=== PATIENT | female | born 1970 | race Caucasian/White ===

== ENCOUNTER 2018-12-17 22:24 | Observation (INO) | payer OTHER ==
[~2018-12-17] VITALS: Ht 170.2 cm; Wt 86.2 kg
[2018-12-17] MEDS ORDERED: HYDROCODONE/APAP 7.5MG-325MG 1 EA TAB PO ONE (22:45)
[2018-12-17] MEDS ORDERED: CLONIDINE HCL 0.1 MG TAB PO ONE (22:45)
[2018-12-17] MEDS ORDERED: LABETALOL HCL 5 MG/ML 20ML VIAL IV STA (22:55)
--- NOTE | 2018-12-17 23:39 | Diagnostic Imaging Report ---
EXAMINATION: Head CT without contrast. HISTORY:Headache, dizziness. COMPARISON:None. TECHNIQUE: Multidetector axial images were obtained from the foramen magnum to the vertex without contrast. The images were reconstructed using brain and bone algorithms. Thin section brain images were reformatted into coronal and sagittal planes. Dose modulation, iterative reconstruction, and/or weight based adjustment of the mA/kV was utilized to reduce the radiation dose to as low as reasonably achievable. Intravenous contrast: None IMAGE QUALITY: Suboptimal evaluation particularly at the level of skull base and posterior fossa structures due to streak artifacts. FINDINGS: Skull/scalp: Nonspecific punctate superficial soft tissue focal hyperdensity in right supraorbital region may represent calcification or foreign body. Parenchyma: No abnormal density. No acute hemorrhage, mass or acute major vascular territorial infarct. Arteries: No density suggestive of thrombosis. Dural sinuses: No abnormal density suggestive of thrombosis. Ventricles: No hydrocephalus or displacement. Extra-axial spaces: No abnormal density. Brain volume: Normal for age. Craniocervical junction: No mass, Chiari malformation, or basilar invagination. Sella: No mass. Paranasal/mastoid sinuses: Imaged portions unremarkable. IMPRESSION: No acute intracranial abnormality. Signed by: Dr. Tigist Cheng M.D. on 12/17/2018 11:35 PM
--- NOTE | 2018-12-17 23:40 | Diagnostic Imaging Report ---
EXAMINATION: CHEST SINGLE (PORTABLE) INDICATION: Hypertension. COMPARISON: None FINDINGS: TUBES and LINES: None. LUNGS: Lungs are moderately inflated. There is no evidence of pneumonia or pulmonary edema. PLEURA: No pleural effusion or pneumothorax. HEART AND MEDIASTINUM: The cardiomediastinal silhouette is unremarkable. BONES AND SOFT TISSUES: No acute osseous abnormality. UPPER ABDOMEN: No free air under the diaphragm. IMPRESSION: No acute radiographic abnormality. Signed by: Dr. Edy Schmitz MD on 12/17/2018 11:37 PM
[2018-12-18] VITALS (8 sets, daily range): BP systolic 130–168; BP diastolic 81–97
[2018-12-18 00:06] LABS: BASOPHILS % 0.5 % (0.0-1.0); EOSINOPHILS # (AUTO) 0.2 (0.0-0.4); EOSINOPHILS % 2.5 % (0.0-6.0); HEMATOCRIT 43.6 % (34.2-44.1); HEMOGLOBIN 14.4 g/dL (12.0-16.0); LYMPHOCYTES # (AUTO) 2.5 (1.0-3.2); LYMPHOCYTES % 28.1 % (18.0-39.1); MEAN CORPUSCULAR HEMOGLOBIN 30.8 pg (28-32); MEAN CORPUSCULAR VOLUME 93.2 fL (81-99); MONOCYTES # (AUTO) 0.9 (0.2-0.8); MONOCYTES % 9.9 % (4.4-11.3); NEUTROPHILS # (AUTO) 5.2 (2.1-6.9); NEUTROPHILS % 58.9 % (38.7-80.0); PLATELET COUNT 295 x10e3/uL (140-360); RED BLOOD COUNT 4.68 x10e6/uL (3.6-5.1); RED CELL DISTRIBUTION WIDTH 12.5 % (11.7-14.4)
[2018-12-18 00:14] LABS: PARTIAL THROMBOPLASTIN TIME 26.9 seconds (23.8-35.5)
[2018-12-18 00:17] LABS: INR 0.85; PROTHROMBIN TIME 12.1 seconds (11.9-14.5)
[2018-12-18 00:27] LABS: ALANINE AMINOTRANSFERASE 12 IU/L (0-55); ALBUMIN 3.8 g/dL (3.5-5.0); ALBUMIN/GLOBULIN RATIO 1.2 (0.8-2.0); ALKALINE PHOSPHATASE 37 IU/L (40-150); ANION GAP 16.9 mmol/L (8-16); BLOOD UREA NITROGEN 6 mg/dL (7-26); BUN/CREATININE RATIO 8 (6-25); CALCIUM 8.6 mg/dL (8.4-10.2); CARBON DIOXIDE 22 mmol/L (22-29); CHLORIDE 104 mmol/L (98-107); CREATINE KINASE 38 IU/L (29-168); CREATININE, SERUM 0.74 mg/dL (0.57-1.11); EST GLOMERULAR FILTRATION RATE > 60 ML/MIN (60-); GLUCOSE 94 mg/dL (74-118); SODIUM 140 mmol/L (136-145)
[2018-12-18 00:39] LABS: POTASSIUM 2.9 mmol/L (3.5-5.1)
[2018-12-18] MEDS ORDERED: POTASSIUM CHLORIDE 20 MEQ TAB CR PO STA (00:40)
[2018-12-18] MEDS ORDERED: KCL 20MEQ/.9 SOD CHL 1,000 ML IV ONE (00:45)
[2018-12-18 01:25] LABS: CREATINE KINASE MB < 1.00 ng/mL (0-4.3)
--- OUTSIDE RECORDS SUMMARY | 2018-12-18 01:44 | XMS REPORT ---
Author Author [facility] Address Unknown Phone Unavailable Care Team Providers Care Tender Coordinator Name Role Phone Paulette CANTU Unavailable Unavailable Problems This patient has no known problems. Allergies, Adverse Reactions, Alerts This patient has no known allergies or adverse reactions. Medications This patient has no known medications. Results Test Description Test Time Test Comments Text Results Atomic Results Result Comments CHEST SINGLE (PORTABLE) 2018-12-17 23:36:00 [place] [address] Patient Name: VELMA RODARTE MR #: [id number] : 1970 Age/Sex: 47/F Req #: [id number] Adm Physician: Ordered by: LUIS CANTU MD Report #: [id number] Location: ER Room/Bed: Procedure: [id number] DX/CHEST SINGLE (PORTABLE) Exam Date: 12/17/18 Exam Time: 2300 REPORT STATUS: Signed EXAMINATION: CHEST SINGLE (PORTABLE) INDICATI ON: Hypertension. COMPARISON: None FINDINGS: TUBES and LINES: None. LUNGS: Lungs are moderately inflated. There is no evidence of pneumonia or pulmonary edema. PLEURA: No pleural effusion or pneumothorax. HEART AND MEDIASTINUM: The cardiomediastinal silhouette is unremarkable. BONES AND SOFT TISSUES: No acute osseous abnormality. UPPER ABDOMEN: No free air under the diaphragm. IMPRESSION: No acute radiographic abnormality. Signed by: Dr. Arvin Jackson MD on 12/17/2018 11:37 PM Dictated By: ARVIN JACKSON MD 36 Transcribed By: STONEY on 12/17/182336 COPY TO: LUIS CANTU MD CT BRAIN WO 2018-12-17 23:32:00 [place] [address] Patient Name: VELMA RODARTE MR #: [id number] : 1970 Age/Sex: 47/F Req #: [id number] Adm Physician: Ordered by: LUIS CANTU MD Report #: [id number] Location: ER Room/Bed: Procedure: [id number] CT/CT BRAIN WO Exam Date: 12/17/18 Exam Time: 2300 REPORT STATUS: Signed EXAMINATION: Head CT without contrast. HISTORY:Headache, dizziness. COMPARISON:None. TECHNIQUE: Multidetector axial images were obtained from the foramen magnum to the vertex without contrast. The images were reconstructed using brain and bone algorithms. Thin section brain images were reformatted into coronal and sagittal planes. Dose modulation, iterative reconstruction, and/or weight based adjustment of the mA/kV was utilized to reduce the radiation dose to as low as reasonably achievable. Intravenous contrast: None IMAGE QUALITY: Suboptimal evaluation particularly at the level of skull base and posterior fossa structu res due to streak artifacts. FINDINGS: Skull/scalp: Nonspecific punctate superficial soft tissue focal hyperdensity in right supraorbital region may represent calcification or foreign body. Parenchyma: No abnormal density. No acute hemorrhage, mass or acute major vascular territorial infarct. Arteries: No density suggestive of thrombosis. Dural sinuses: No abnormal density suggestive of thrombosis. Ventricles: No hydrocephalus or displacement. Extra-axial spaces: No abnormal density. Brain volume: Normal for age. Craniocervical junction: No mass, Chiari malformation, or basilar invagination. Sella: No mass. Paranasal/mastoid sinuses: Imaged portions unremarkable. IMPRESSION: No acute intracranial abnormality. Signed by: Dr. Tigist Cheng M.D. on 12/17/2018 11:35 PM Dictated By: TIGIST CHENG MD [id number] Transcribed By: STONEY on 12/17/187 COPY TO: LUIS CANTU MD
[2018-12-18] MEDS ORDERED: NITROGLYCERIN 0.4 MG SUBL SL PRN (01:45)
[2018-12-18] MEDS: FAMOTIDINE 20 MG/2 ML VIAL IV SCH ×3 (01:45→20:01)
[2018-12-18] MEDS ORDERED: ONDANSETRON HCL INJ 2MG/ML 2ML 2 MG/ML VIAL IV PRN (01:45)
[2018-12-18] MEDS ORDERED: MORPHINE SULFATE 2 MG/ML SYR 1ML IV PRN (01:45)
[2018-12-18] MEDS ORDERED: CLONIDINE HCL0.1 MG PO (02:24)
[2018-12-18] MEDS ORDERED: HYDRALAZINE HCL50 MG PO (02:24)
[2018-12-18] MEDS ORDERED: METOPROLOL TARTRATE 25 MG TAB PO ONE (02:30)
[2018-12-18 03:58] LABS: BILIRUBIN,URINE NEGATIVE (NEGATIVE); CLARITY,URINE CLEAR (CLEAR); COLOR,URINE YELLOW (YELLOW); KETONES,URINE 1+ (NEGATIVE); LEUKOCYTE ESTERASE ,URINE NEGATIVE (NEGATIVE); NITRITE,URINE NEGATIVE (NEGATIVE); PROTEIN,URINE DIPSTICK NEGATIVE (NEGATIVE); URINE UROBILINOGEN 0.2 mg/dL (0.2 - 1)
[2018-12-18 04:06] LABS: BACTERIA,URINE FEW /HPF; EPITHELIAL CELLS,URINE MANY /LPF; PREGNANCY TEST, URINE NEGATIVE (NEGATIVE)
--- NOTE | 2018-12-18 04:15 | NUR ---
RECEIVED PT TO UNIT ROOM 106 VIA WHEELCHAIR AT THIS TIME.PT AAO X 3.NO S/S OF DISTRESS NOTED.RESPIRATIONS EVEN/NON LABORED.PT DENIES ANY CHEST PAIN AT THIS TIME.PT'S IV TO RIGHT AC NOTED LEAKING.INSTRUCTED PT TO CALL FOR ASSISTANCE NEEDED BY PRESSING CALL LIGHT,PT VERBALIZED UNDERSTANDING.CALL LIGHT WITHIN EASY REACH.
[2018-12-18] MEDS ORDERED: LO LOESTRIN FE1 EACH PO (04:20)
--- NOTE | 2018-12-18 04:49 | NUR ---
NEW IV STARTED TO RIGHT FA 20G.
--- NOTE | 2018-12-18 06:41 | NUR ---
PT C/O HEADACHE,REQUESTING EXCEDRIN,CALL PLACED TO DR AGUIAR.SPOKE WITH MICHELLE MOBLEY.N/O RECEIVED FOR NORCO 5/325MG PO X 1.
[2018-12-18] MEDS ORDERED: HYDROCODONE/APAP 5MG-325MG TAB PO ONE (06:45)
--- NOTE | 2018-12-18 07:07 | NUR ---
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
[2018-12-18] MEDS ORDERED: ACETAMINOPHEN 325 MG TAB PO PRN ×2 (08:00→10:00)
[2018-12-18] MEDS: METOPROLOL TARTRATE 25 MG TAB PO SCH ×2 (08:08→16:31)
[2018-12-18 08:28] LABS: ALANINE AMINOTRANSFERASE 12 IU/L (0-55); ALBUMIN 3.2 g/dL (3.5-5.0); ALBUMIN/GLOBULIN RATIO 1.2 (0.8-2.0); ALKALINE PHOSPHATASE 31 IU/L (40-150); ANION GAP 10.7 mmol/L (8-16); BLOOD UREA NITROGEN 5 mg/dL (7-26); BUN/CREATININE RATIO 8 (6-25); CALCIUM 8.1 mg/dL (8.4-10.2); CARBON DIOXIDE 25 mmol/L (22-29); CHLORIDE 108 mmol/L (98-107); CREATININE, SERUM 0.64 mg/dL (0.57-1.11); EST GLOMERULAR FILTRATION RATE > 60 ML/MIN (60-); GLUCOSE 99 mg/dL (74-118); POTASSIUM 3.7 mmol/L (3.5-5.1); SODIUM 140 mmol/L (136-145)
[2018-12-18 08:52] LABS: BASOPHILS % 0.4 % (0.0-1.0); EOSINOPHILS # (AUTO) 0.2 (0.0-0.4); EOSINOPHILS % 2.5 % (0.0-6.0); HEMATOCRIT 40.7 % (34.2-44.1); HEMOGLOBIN 13.2 g/dL (12.0-16.0); LYMPHOCYTES # (AUTO) 1.4 (1.0-3.2); LYMPHOCYTES % 20.7 % (18.0-39.1); MEAN CORPUSCULAR HEMOGLOBIN 30.4 pg (28-32); MEAN CORPUSCULAR HGB CONC 32.4 g/dL (31-35); MEAN CORPUSCULAR VOLUME 93.8 fL (81-99); MONOCYTES # (AUTO) 0.6 (0.2-0.8); MONOCYTES % 8.6 % (4.4-11.3); NEUTROPHILS # (AUTO) 4.6 (2.1-6.9); NEUTROPHILS % 67.5 % (38.7-80.0); PLATELET COUNT 261 x10e3/uL (140-360); RED BLOOD COUNT 4.34 x10e6/uL (3.6-5.1); RED CELL DISTRIBUTION WIDTH 12.6 % (11.7-14.4)
[2018-12-18] MEDS ORDERED: METOPROLOL TARTRATE 25 MG TAB PO SCH ×2 (09:00)
[2018-12-18 09:04] LABS: CREATINE KINASE 32 IU/L (29-168)
[2018-12-18] MEDS: ASPIRIN 81 MG ENTERIC COATED PO SCH (09:46)
[2018-12-18] MEDS ORDERED: HYDRALAZINE HCL 20 MG/ML VIAL IV PRN (10:00)
[2018-12-18 10:07] LABS: CHOL/HDL RATIO 4.8 (3.0-3.6)
[2018-12-18 16:24] LABS: CREATINE KINASE 30 IU/L (29-168)
[2018-12-18] MEDS: HYDRALAZINE HCL 25 MG TAB PO SCH (16:30)
--- NOTE | 2018-12-18 19:32 | NUR ---
Received report from previous nurse. Call light within reach. Patient's at bedside. Patient walking around the room.
--- NOTE | 2018-12-18 20:00 | NUR ---
CALLED AND TALKED TO DR. HYDE ABOUT PATIENT COMPLAINING OF A BAD HEADACHE WHICH IS 8 OUT OF 10. SHE SAID THE ACETAMINOPHEN DOES NOT WORK. DR. HYDE ORDERED FIORICET ONE TIME DOSE FOR THE PATIENT.
[2018-12-18] MEDS ORDERED: ACETAMIN/BUTALBITAL/CAFFEINE TAB PO ONE ×2 (20:15→20:20)
--- NOTE | 2018-12-19 00:35 | Consultation ---
DATE OF CONSULTATION: 12/18/2018 Neurology Consult Note HISTORY OF PRESENT ILLNESS: Ms. Rodarte is a 47-year-old left-hand dominant woman with past medical history significant for hypertension and a prior history of migraines, admitted to [facility] under observation status on December 18, 2018, with hypertensive urgency/emergency and headache. Ms. Rodarte describes her headache as follows: The pain is usually located in a bandlike distribution around the head. However, at present, the pain is localized in the right eye. The pain is described as dull and aching and waxes and wanes in severity. At present, the pain is rated 2/10. Ms. Rodarte does not report photophobia or phonophobia associated with the headaches. She does report mild nausea without vomiting. She does not report dizziness associated with the headache. Ms. Rodarte does report blurred vision associated with the headaches. Triggers include elevated blood pressure. Ms. Rodarte reports she only experiences severe headaches with elevations in blood pressure. When she is normotensive, she generally does not experience headaches unless she has a sinus infection. There is no known family history of primary headache disorders. Ms. Rodarte presented to the emergency center at [facility] late at night on December 17, 2018, with a severe headache. Upon admission to the emergency center, the patient was afebrile with a blood pressure of 193/115 mmHg and a pulse of 106 beats per minute. Her neurological examination was documented as being nonfocal. A CT of the brain without contrast was performed while the patient was in the emergency center. This study did not reveal evidence of recent large territorial ischemia or hemorrhage. Ms. Rodarte was subsequently admitted to [facility] under observation status for further evaluation and treatment of her symptoms. As mentioned above, Ms. Rodarte reports her headache is very mild at present. She attributes this to being normotensive. Ms. Rodarte does report treatment with clonidine is the only thing which seems to improve her headaches. REVIEW OF SYSTEMS: Nausea, blurred vision, headache. Otherwise, a 12-point review of systems is negative. PAST MEDICAL HISTORY: Hypertension, reported prior history of migraines. PAST SURGICAL HISTORY: None. PAST HOSPITALIZATIONS: Childbirth. FAMILY MEDICAL HISTORY: The patient's father is from a stroke. Her mother is from lung cancer. The patient is unaware of any health problems amongst her siblings. All of her children are alive and healthy. SOCIAL HISTORY: Ms. Rodarte is . She works in [employer] [place]. The patient does not report current or prior tobacco, alcohol, or recreational drug use. HOME MEDICATIONS: Hydralazine 50 mg by mouth twice daily, clonidine 0.1 mg by mouth twice daily as needed for high blood pressure, Loestrin 1 tablet by mouth daily. HOSPITAL MEDICATIONS: Tylenol, aspirin, Pepcid, hydralazine, [place], metoprolol, morphine, nitroglycerin, hydralazine, Zofran. ALLERGIES: NO KNOWN DRUG ALLERGIES. MS. RODARTE REPORTS AN ALLERGY TO ASPARTAME. NO KNOWN ALLERGIES TO LATEX. NO KNOWN ALLERGIES TO IODINE OR OTHER CONTRAST MATERIALS. PHYSICAL EXAMINATION: VITAL SIGNS: Height 67 inches, weight 190 pounds, BMI 29.8 kg/m2. Blood pressure 136/97 mmHg, pulse 60 beats per minute, respiratory rate 18 breaths per minute, and oxygen saturation 96% on room air. GENERAL: The patient is awake and alert, does not appear distressed. Overweight. HEENT: Normocephalic, atraumatic. Pupils are equal, round, and reactive to light. Moist mucous membranes. NECK: Supple. No appreciable thyromegaly. No appreciable carotid bruits. CARDIOVASCULAR: S1 and S2, regular rate and rhythm. No murmurs, rubs, or gallops. RESPIRATORY: Clear to auscultation bilaterally. No wheezes, rhonchi, or rales. EXTREMITIES: The skin is warm and dry. No clubbing, cyanosis, or edema. The posterior tibial and dorsalis pedis pulses are 2+ and symmetric. SKIN: No rashes or lesions. NEUROLOGIC: Memory/Attention: The patient is awake and alert, oriented to person, place, time, and situation. Cranial Nerves: Cranial nerve I-not tested. Cranial nerve II, III, IV, and - pupils are equal and round, react briskly to light (from 4 mm to 2 mm). Extraocular movements intact. No nystagmus. Cranial nerve V-sensation to light touch and pinprick is intact in the bilateral V1 through V3 distributions. Strength in the temporalis and masseter muscles is within normal limits. Cranial nerve VII-the face is symmetric as are all facial movements. Strength is within normal limits. Cranial nerve VIII-hearing is intact to finger rub bilaterally. Cranial nerve IX, X-the soft palate elevates equally and symmetrically. Cranial nerve XI-normal strength of the bilateral sternocleidomastoid and trapezius muscles. Cranial nerve XII-the tongue protrudes midline and moves symmetrically from [id number]-[id number]. Strength: Bulk is normal. Strength is 5/5 in the bilateral deltoids, biceps, triceps, wrist flexors and extensors, finger flexors and extensors, intrinsic hand muscles, hip flexors, knee flexors and extensors, ankle dorsiflexion and plantar flexion, and intrinsic foot muscles. Tone is normal. DTRs: Deep tendon reflexes are 2+ and symmetric at the triceps, biceps, brachioradialis, patellas, and Achilles. Plantar responses are flexor bilaterally. Sensation: Sensation is intact to light touch and pinprick in both arms and both legs. Cerebellar: Yiatcf-tqni-mueghn and heel-howell movements are intact without dysmetria or other impairment. Gait: Deferred. Speech: Spontaneous speech is normal without appreciable dysarthria or aphasia. Repetition is intact. Involuntary movements: None. Pronator Drift: None. LABORATORY DATA: The most recent comprehensive metabolic panel is significant for chloride of 108, BUN of 5, calcium of 8.1, alkaline phosphatase of 31, total protein of 5.8, and albumin of 3.2. Cardiac enzymes are negative x3. B-natriuretic peptide 11.8. Total cholesterol 183, triglycerides 159, LDL cholesterol 113, HDL cholesterol 38. CBC with differential and platelets is unremarkable. The coagulation profile is within normal limits. A urinalysis is significant for 1+ ketones, 6 to 10 white blood cells, few bacteria with many urine epithelial cells. Urine culture is pending. DIAGNOSTIC STUDIES: Electrocardiogram on 12/17/2018: Sinus rhythm at 97 beats per minute with frequent premature ventricular complexes. Chest x-ray on 12/17/2018: No acute radiographic abnormality. CT of the brain without contrast on 12/17/2018: On my review, there is no evidence of recent or remote large territorial ischemia, hemorrhage, mass, or mass effect. Cerebral volumes are appropriate for age. There are no findings suggestive of chronic small vessel ischemic disease. ASSESSMENT AND PLAN: Ms. Rodarte is a 47-year-old left-hand dominant woman with past medical history as detailed, admitted to [facility] under observation status on 12/18/2018 with hypertensive urgency/emergency and headache with associated blurred vision and nausea. At present, the patient's neurological examination is nonfocal. Her laboratory data and other diagnostic studies have been reviewed and are documented above. In my opinion, the headaches described by Ms. Rodarte are characteristic of those often experienced with poorly controlled/uncontrolled hypertension. My recommendation is to adjust/add an antihypertensive medications to bring the patient's blood pressures under adequate control. Once this is accomplished, the patient should no longer experience frequent headaches. Thank you for this consultation. There are no other recommendations from the Neurology Service at this time. Please call again with any questions or concerns. TIME SPENT: 70 minutes. Alexandra Frey MD CP/JUDE /[id number] MTDMichi
--- NOTE | 2018-12-19 00:41 | NUR ---
PATIENT COMPLAINING OF PAIN IN HER FACE AND HEAD. PATIENT SAID TYLENOL DOES NOT WORK AND WANTS SOMETHING FOR HER PAIN. CALLED DR. AGUIAR OFFICE AND TALKED TO LEANDRA MARTINEZ ABOUT THE PATIENT WANTING SOMETHING FOR PAIN AND THE PAIN MEDICATION IS NOT HELPING. SHE SAID TO GIVE THE PATIENT TYLENOL #3.
[2018-12-19] MEDS ORDERED: ACETAMINOPHEN/CODEINE 300MG - 30MG TAB PO PRN (00:45)
[2018-12-19 00:53] VITALS: BP 136/81
[2018-12-19 05:47] VITALS: BP 165/97
--- NOTE | 2018-12-19 07:08 | NUR ---
GAVE REPORT TO ONCOMING NURSE. PATIENT ASLEEP IN BED. CALL LIGHT WITHIN REACH.
[2018-12-19] MEDS ORDERED: LOPRESSOR25 MG PO (07:13)
[2018-12-19] MEDS ORDERED: ASPIRIN EC81 MG PO (07:13)
[2018-12-19] MEDS ORDERED: HYDROCHLOROTHIA25 MG PO (07:13)
[2018-12-19] MEDS ORDERED: CLONIDINE HCL0.1 MG PO (07:13)
[2018-12-19] MEDS ORDERED: FAMOTIDINE20 MG PO (07:15)
[2018-12-19 08:23] VITALS: BP 142/99
--- NOTE | 2018-12-19 08:55 | NUR ---
PATIENT STATED "I WANT THIS IV OUT, IT STILL HURTS." THE IV SITE AND SURROUNDING AREA HAD NO SWELLING, REDNESS OR DISCHARGE, IV WAS REMOVED AT PATIENT'S 2ND DEMAND.
[2018-12-19] MEDS ORDERED: HYDROCHLOROTHIAZIDE 25 MG TAB PO SCH (09:00)
[2018-12-19] MEDS: FAMOTIDINE 20 MG/2 ML VIAL IV SCH (09:00)
[2018-12-19] MEDS: HYDRALAZINE HCL 25 MG TAB PO SCH (09:01)
[2018-12-19] MEDS: METOPROLOL TARTRATE 25 MG TAB PO SCH (09:01)
[2018-12-19] MEDS: ASPIRIN 81 MG ENTERIC COATED PO SCH (09:01)
[2018-12-19] MEDS ORDERED: BACLOFEN10 MG PO (09:33)
--- NOTE | 2018-12-19 09:54 | NUR ---
PATIENT'S PHARMACY: [facility] [address] [facility] [phone].
[2018-12-19] MEDS ORDERED: SUMATRIPTAN SUCCINATE 25 MG TAB PO ONE (10:00)
[2018-12-19 10:37] VITALS: BP 133/96
[2018-12-19 10:43] VITALS: BP 133/96
--- NOTE | 2018-12-19 22:49 | Discharge Summary ---
ADMISSION DIAGNOSES: 1. Chest pain. 2. Hypertensive urgency. 3. Migraine. 4. Hypokalemia. DISCHARGE DIAGNOSES: 1. Chest pain. 2. Hypertensive urgency. 3. Migraine. 4. Hypokalemia. 5. Rule out acute coronary syndrome. HISTORY: Hypertension and migraine. SURGICAL HISTORY: None. FAMILY HISTORY: The patient's mom and dad had diabetes. The patient's mom had cancer. The patient's dad had a stroke. SOCIAL HISTORY: Noncontributory. HOSPITAL COURSE: A 48-year-old female admits with elevated blood pressure 169/130 with associated nausea. She had a similar episode one month ago and was given a p.r.n. prescription for clonidine. She also has intermittent headaches with photophobia and phonophobia. She denies dizziness and vomiting. On admission, troponins were negative x3. Echo showed an EF of 60% to 65%. Chest x-ray was negative. CT of the brain was negative. Neurology was consulted for treatment of migraines, but after speaking with the neurologist, the patient changed her story and said that she did not have phonophobia or photophobia, so Neurology did not treat the migraines, as she thought the migraines were related to high blood pressure. The patient was started on metoprolol at admission, which improved the blood pressure and hydrochlorothiazide was added for increased diastolic blood pressure. She will also be discharged home with aspirin and Pepcid. The patient and understand discharge instructions and agrees to plan. Due to the patient complaining of neck and upper back pain, she was also given a prescription for baclofen. Vital signs stable. The patient afebrile. Dictated by Candy Vitale NP MD BALDOMERO Kiran/MODL /[id number]
== END 2018-12-19 10:50 | disposition home or self-care (01) ==
LOC: ER 22:24 → ERHOLD 12-18 01:40 → MED/SURG 12-18 04:13
PROVIDERS: ADMIT Internal Medicine; ATTEND Internal Medicine
DX: I16.0 Hypertensive urgency (principal); G43.909 Migraine, unspecified, not intractable, without status migrainosus; E87.6 Hypokalemia; R07.9 Chest pain, unspecified
CPT/HCPCS: 36415; 70450; 71045; 80053; 80061; 81001; 81025; 82550; 82553; 82607; 83036; 83880; 84484; 85025; 85610; 85730; 87086; 93005; 93306; 99284; G0378 ×2; J0360; J2270; J2405